=== PATIENT | female | born 1980 | race Caucasian/White ===

== ENCOUNTER 2023-08-05 10:43 | Outpatient (OUT) | payer BC, SELFPAY ==
--- NOTE | 2023-08-05 10:48 | US_ITS ---
Patient Name: SEGUNDO ALANIS MR#: [id number] : 1980 Exam Date: 08/05/2023 Ordering Doctor: DR MORIS ARTEAGA . RADIOLOGY REPORT PROCEDURE: MM TOMOSYNTHESIS DIAGNOSTIC BI, 08/05/2023, 09:54 US BREAST RT LIMITED, 08/05/2023, 11:18 COMPARISON: US BREAST RIGHT LIMITED, 09/17/2022. MG MAMM DIAGNOSTIC 3D BAILEY CAD, 09/17/2022. MAMMO POST BIOPSY RIGHT, 06/24/2021. MG MAMM DIAGNOSTIC 3D BAILEY CAD, 06/21/2021. 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 LOCATION: [facility] BREAST COMPOSITION: Extremely dense, which lowers the sensitivity of mammography. FINDINGS: DIAGNOSTIC CATEGORY 3--PROBABLY BENIGN FINDING. THE FOLLOWING FINDING(S) HAS A HIGH PROBABILITY OF A BENIGN ETIOLOGY: RIGHT BREAST: Marked spiculation and stranding and eating from posterior upper inner quadrant, not significantly changed. Ultrasound evaluation social a heterogeneous hypoechoic geographic shaped mass/scarring at the 1 o'clock position 2.1 cm from the nipple, 2.5 x 1.7 x 0.9 cm. While appearance is concerning, I suspect this represents prominent postsurgical scarring. Additional follow-up right breast diagnostic mammography and right breast ultrasound in 6 months is recommended to document continued stability. LEFT BREAST: No significant suspicious finding. Scattered benign-appearing calcifications are present. No significant change has occurred. RECOMMENDATIONS: SHORT TERM FOLLOW-UP DIAGNOSTIC MAMMOGRAM RIGHT BREAST IN 6 MONTHS. SHORT TERM FOLLOW-UP ULTRASOUND RIGHT BREAST IN 6 MONTHS. PLEASE NOTE: A NORMAL MAMMOGRAM DOES NOT EXCLUDE THE POSSIBILITY OF BREAST CANCER. A CLINICALLY SUSPICIOUS PALPABLE LUMP SHOULD BE BIOPSIED. Dictated by: Peter Ya M.D. on 08/05/2023 at 11:45 Approved by: Petre Ya M.D. on 08/05/2023 at 11:57
== END 2023-08-05 10:44 | disposition home or self-care (01) ==
LOC: MAMMO 10:43
PROVIDERS: PCP Family Medicine; Visit Provider Family Medicine
DX: D05.10 Intraductal carcinoma in situ of unspecified breast (principal); N64.89 Other specified disorders of breast
CPT/HCPCS: 76642; 77066; G0279

== ENCOUNTER 2024-02-24 09:20 | Outpatient (OUT) | payer BC, SELFPAY ==
--- NOTE | 2024-02-24 09:32 | MM_ITS ---
Patient Name: SEGUNDO ALEXANDER MR#: [id number] : 1980 Exam Date: 02/24/2024 Ordering Doctor: DR Jose Glass . RADIOLOGY REPORT PROCEDURE: MM TOMOSYNTHESIS DIAGNOSTIC RT, 02/24/2024, 09:49 US BREAST RT LIMITED, 02/24/2024, 10:02 COMPARISON: MM TOMOSYNTHESIS DIAGNOSTIC BI, 08/05/2023. INDICATIONS: Invasive Ductal Carcinoma C50.911 Calculator Name NCI Breast Cancer Risk Assessment Tool 5 Year Breast Cancer Risk n/a% Lifetime Breast Cancer Risk n/a% Personal Breast Cancer Yes, age 40, invasive ductal carcinoma Personal Ovarian Cancer No Treatments None Family Cancers Aunt-maternal with unknown cancer at age ~54. LOCATION: [facility] BREAST COMPOSITION: The breasts are extremely dense, which lowers the sensitivity of mammography. FINDINGS: DIAGNOSTIC CATEGORY 2--BENIGN FINDING. NO CHANGE FROM COMPARISON. The right breast is stable in size and overall fibroglandular configuration. Focal area architectural distortion and focal density with a central area measuring 2.6 cm along the chest wall, upper inner quadrant, stable from prior exam. Ultrasound demonstrates at the 2 o'clock position an area hypoechogenicity stable from the prior exam measuring 1.6 x 1.1 cm. I favor postsurgical/post treatment changes. RECOMMENDATIONS: ROUTINE MAMMOGRAM AND CLINICAL EVALUATION IN 12 MONTHS. PLEASE NOTE: A NORMAL MAMMOGRAM DOES NOT EXCLUDE THE POSSIBILITY OF BREAST CANCER. A CLINICALLY SUSPICIOUS PALPABLE LUMP SHOULD BE BIOPSIED. Dictated by: Tigre Cordoba MD on 02/24/2024 at 10:29 Approved by: Tigre Cordoba MD on 02/24/2024 at 10:32
== END 2024-02-24 09:21 | disposition home or self-care (01) ==
PROVIDERS: PCP Family Medicine; Visit Provider Family Medicine
DX: C50.911 Malignant neoplasm of unspecified site of right female breast (principal); Z80.9 Family history of malignant neoplasm, unspecified; R92.8 Other abnormal and inconclusive findings on diagnostic imaging of breast
CPT/HCPCS: 76642; 77065; G0279